=== PATIENT | male | born 1975 | race Caucasian/White ===

== ENCOUNTER 2017-03-28 17:28 | Emergency (ER) | payer OTHER ==
--- NOTE | ~2017-03-28 | CR150 ---
[facility]. [facility] A Service of [facility] & [facility] RADIOLOGY TEXT RESULTS PATIENT: DARSHAN HERNANDEZ LOCATION: SED : 75 UNIT #: [id number] AGE: [address]: Cristela Mcdonald APRN SEX: M ORDER DR: [id number] [place] [id number] E MR#: [id number] Acc #: [id number] NAME: DARSHAN HERNANDEZ : 1975 SEX: M STUDY DATE/TIME: 03/28/2017 17:53 UNIT: SED ROOM: STUDY DESCRIPTION: CR Hip Min 2 Views Lt Attending Physician: Cristela Mcdonald A.P.R.N. Ordering Physician: Cristela Mcdonald A.P.R.N. Primary Care Physician: No Primary Care Physician MEDICAL IMAGING REPORT This report is preliminary unless electronic signature is present. EXAM Left hip, 2 views. COMPARISON None. INDICATION 41-year-old male with left hip pain after falling out of bed today. FINDINGS Calcium density in the right pelvis is most consistent with phlebolith. Evaluation of the sacrum and iliac bones is limited by overlapping bowel gas and stool. Left hip is anatomically aligned. No evidence of acute fracture. No significant degenerative change. IMPRESSION No acute fracture, dislocation or significant degenerative change of the left hip. Dictated by... Ike Kruse M.D. THIS IS AN ELECTRONICALLY VERIFIED REPORT Ike Kruse M.D. at 04/02/2017 7:32 PM Ramila TD: 03/28/2017 20:57 JOB #: [id number] MEDICAL IMAGING REPORT Page 1 of 1
--- NOTE | ~2017-03-28 | CR172 ---
[facility]. [facility] A Service of [facility] & [facility] RADIOLOGY TEXT RESULTS PATIENT: DARSHAN HERNANDEZ LOCATION: SED : 75 UNIT #: [id number] AGE: [address]: Cristela Mcdonald APRN SEX: M ORDER DR: [id number] [place] [address] [id number] E MR#: [id number] Acc #: [id number] NAME: DARSHAN HERNANDEZ : 1975 SEX: M STUDY DATE/TIME: 03/28/2017 17:47 UNIT: SED ROOM: STUDY DESCRIPTION: CR Knee 3 Views Lt Attending Physician: Cristela Mcdonald A.P.R.N. Ordering Physician: Cristela Mcdonald A.P.R.N. Primary Care Physician: Primary Care Physician No MEDICAL IMAGING REPORT This report is preliminary unless electronic signature is present. EXAM Left knee, 3 views COMPARISON None INDICATIONS 41-year-old male with left knee pain after falling out of bed today. FINDINGS No suprapatellar effusion. Bones are anatomically aligned. No evidence of acute fracture or significant degenerative change. IMPRESSION Normal exam. Dictated by... Ike Kruse M.D. THIS IS AN ELECTRONICALLY VERIFIED REPORT Ike Kruse M.D. at 03/29/2017 1:48 PM BLM/psc TD: 03/28/2017 21:16 JOB #: [id number] MEDICAL IMAGING REPORT Page 1 of 1
--- NOTE | ~2017-03-28 | CR181 ---
[facility] A Service [facility] RADIOLOGY TEXT RESULTS PATIENT: DARSHAN HERNANDEZ LOCATION: SED : 75 UNIT #: [id number] AGE: [address]: Cristela Mcdonald APRN SEX: M ORDER DR: [id number] [place] [id number] E MR#: [id number] Acc #: [id number] NAME: DARSHAN HERNANDEZ : 1975 SEX: M STUDY DATE/TIME: 03/28/2017 17:47 UNIT: SED ROOM: STUDY DESCRIPTION: CR Lumbar Spine 2 or 3 Views Attending Physician: Cristela Mcdonald A.P.R.N. Ordering Physician: Cristela Mcdonald A.P.R.N. MEDICAL IMAGING REPORT This report is preliminary unless electronic signature is present. EXAM Lumbar spine, 3 views COMPARISON None. INDICATIONS 41-year-old male with low back pain after falling out of bed this morning. FINDINGS Calcium density in the right upper quadrant is favored to a represent prominent costal cartilage calcification. Lumbar spine is anatomically aligned. Lumbar vertebral body heights and disc heights are maintained. No evidence of acute fracture. No significant degenerative change. Mild anterior osteophyte formation multiple levels of the anterior lumbar spine. IMPRESSION No acute fracture, dislocation or significant degenerative change of the lumbar spine. Dictated by... Ike Kruse M.D. THIS IS AN ELECTRONICALLY VERIFIED REPORT Ike Kruse M.D. at 03/29/2017 1:48 PM BLM/pcl TD: 03/28/2017 20:51 JOB #: [id number] MEDICAL IMAGING REPORT [facility] A Service [facility] RADIOLOGY TEXT RESULTS PATIENT: DARSHAN HERNANDEZ LOCATION: SED : 75 UNIT #: [id number] AGE: [address]: Cristela Mcdonald APRN SEX: M ORDER DR: Page 1 of 1
== END 2017-03-28 19:11 | disposition home or self-care (01) ==
LOC: SED 17:28
DX: S33.5XXA Sprain of ligaments of lumbar spine, initial encounter (principal); S70.02XA Contusion of left hip, initial encounter; S80.02XA Contusion of left knee, initial encounter; W01.0XXA Fall on same level from slipping, tripping and stumbling without subsequent striking against object, initial encounter; Y92.009 Unspecified place in unspecified non-institutional (private) residence as the place of occurrence of the external cause
CPT/HCPCS: 72100; 73502; 73562; 99284

== ENCOUNTER 2017-06-28 17:37 | Emergency (ER) | payer OTHER ==
[~2017-06-28] VITALS: Ht 185.4 cm; Wt 77.1 kg
== END 2017-06-28 20:39 | disposition left against medical advice (07) ==
LOC: SED 17:37
DX: H93.12 Tinnitus, left ear (principal)
CPT/HCPCS: 69209; 99283